=== PATIENT | male | born 1980 | race African-American/Black ===

== ENCOUNTER 2016-06-06 09:55 | Emergency (ER) | payer OTHER ==
[2016-06-06 10:05] VITALS: BP 155/90; PULSE 103; TEMP 102.5; BMI 31.6
[2016-06-06] MEDS ORDERED: IBUPROFEN 600 MG TABLET (FP) PO ONE ×3 (10:14→11:38)
--- NOTE | 2016-06-06 10:57 | PDOC ---
History of Present Illness - General Chief Complaint: Respiratory Stated Complaint: FLU LIKE SYMPTOMS Time Seen by Provider: 06/06/16 10:56 History Source: Patient Exam Limitations: No Limitations - History of Present Illness Initial Comments: 06/06/16 12:03 My chief complaint: Sore throat, chronic cough, generalized body aches and fever 5 days History Of present illness: Patient is a 36-year-old male with a history of hypertension, scoliosis surgery, and hernia repair here today complaining of generalized body aches, fever, productive cough with white to yellowish phlegm 5 days with sore throat. Patient reports that once he starts coughing he feels slightly short of breath. Patient denies any difficulty swallowing. Patient denies nausea vomiting or diarrhea. Patient reports that his children have been sick recently. Patient did not have influenza vaccine. 06/06/16 12:05 06/06/16 12:27 06/06/16 18:39 Timing/Duration: getting worse Severity: moderate Associated Symptoms: reports: cough (productive white to yellowish ), fever/ chills, other (generalized bodyaches) Past History - Past Medical History Allergies/Adverse Reactions: Allergies Allergy/AdvReac Type Severity Reaction Status Date / Time No Known Allergies Allergy Verified 06/06/16 10:04 Home Medications: Ambulatory Orders Promethazine HCl/Codeine [Prometh-Codein 6.25-10 mg/5 ml] 5 ml PO Q6H PRN #60 ml MDD 4 06/06/16 HTN: Yes Other medical history: SCOLIOSIS - Surgical History Abdominal Surgery: Yes (R INGUINAL HERNIA REPAIR) - Psycho/Social/Smoking Cessation Hx Anxiety: No Suicidal Ideation: No Smoking Status: Yes Smoking History: Current some day smoker Have you smoked in the past 12 months: No Number of Cigarettes Smoked Daily: 0 Information on smoking cessation initiated: No Hx Alcohol Use: No Drug/Substance Use Hx: No Substance Use Type: None Review of Systems - Review of Systems Able to Perform ROS?: Yes Constitutional: Yes: Fever HEENTM: Yes: Throat Pain Respiratory: Yes: Shortness of Breath (when coughing ), Productive cough (white to yellowish). No: Cough, Orthopnea, SOB with Exertion, SOB at Rest, Stridor, Wheezing Cardiac (ROS): No: Symptoms Reported ABD/GI: No: Symptoms Reported : No: Symptoms Reported Musculoskeletal: Yes: Other (generalized bodyaches) Integumentary: No: Symptoms Reported Neurological: No: Symptoms reported *Physical Exam - Vital Signs Last Vital Signs Temp Pulse Resp BP Pulse Ox 102.5 F H 103 H 18 155/90 97 06/06/16 10:01 06/06/16 10:01 06/06/16 10:01 06/06/16 10:01 06/06/16 10:01 - Physical Exam General Appearance: Yes: Appropriately Dressed HEENT: positive: TMs Normal, Pharyngeal Erythema, Tonsillar Erythema (with no uvular deviaton ), Nasal Congestion Neck: negative: Lymphadenopathy (R), Lymphadenopathy (L) Respiratory/Chest: positive: Lungs Clear, Normal Breath Sounds. negative: Chest Tender, Respiratory Distress Cardiovascular: positive: Regular Rhythm, Regular Rate, S1, S2 Integumentary: positive: Normal Color Neurologic: positive: Alert, Responsive ED Treatment Course - Medications Given in the ED: ED Medications Discontinued Medications Generic Name Dose Route Start Last Admin Trade Name Freq PRN Reason Stop Dose Admin Ibuprofen 600 mg 06/06/16 10:14 06/06/16 10:15 Motrin - PO 06/06/16 10:15 600 mg NOW ONE Administration Medical Decision Making - Medical Decision Making 06/06/16 12:27 06/06/16 12:28 Patient is a 36-year-old male with a history of hypertension, scoliosis surgery , and hernia repair here today complaining of generalized body aches, fever, productive cough with white to yellowish phlegm 5 days with sore throat. Patient reports that once he starts coughing he feels slightly short of breath. Patient denies any difficulty swallowing. Patient denies nausea vomiting or diarrhea. Patient reports that his children have been sick recently. Patient did not have influenza vaccine. r/o influenza A or B r/o infiltrate PLAN: influenza A & B + for influenza B ibuprofen 600 mg po now than every 6 hrs prn fever/pain duoneb now decadron 10 mg po now xray Chest PA/lateral no acute pathology per Dr. Schultz promethazine codeine 5 ml q 6 hr prn severe cough X 5 days 06/06/16 18:38 *DC/Admit/Observation/Transfer Diagnosis at time of Disposition: Influenza B - Discharge Dispostion Disposition: HOME Condition at time of disposition: Stable - Prescriptions Prescriptions: Promethazine HCl/Codeine [Prometh-Codein 6.25-10 mg/5 ml] 5 ml PO Q6H PRN #60 ml MDD 4 PRN Reason: Cough - Referrals Referrals: Alejandro Olmstead MD [Primary Care Provider] - - Patient Instructions Additional Instructions: Drink A lot a fluids and rest and follow-up with your primary care provider within the next few days Return to emergency room if symptoms worsen any difficulty breathing Patient voiced understanding of discharge instructions and all questions were answered. - Post Discharge Activity Work/School Note: Back to Work
[2016-06-06] MEDS ORDERED: ALBUTEROL SO4 2.5/IPRATROPIUM 0.5 INH SOL 3 ML VIAL.NEB. NEB ONE ×3 (11:30→11:38)
[2016-06-06] MEDS ORDERED: DEXAMETHASONE LIQUID 0.5 MG/5 ML 240 ML BULK BOTTLE PO ONE (11:30)
[2016-06-06] MEDS ORDERED: DEXAMETHASONE SOD PHOSPHATE 10 MG/1 ML VIAL ONE (11:38)
== END 2016-06-06 12:53 | disposition home or self-care (01) ==
LOC: JERFT 09:55
PROC: 3E0F7GC Introduction of Other Therapeutic Substance into Respiratory Tract, Via Natural or Artificial Opening (ICD-10-PCS; principal; 2016-06-06)
DX: J10.1 Influenza due to other identified influenza virus with other respiratory manifestations (principal); F17.210 Nicotine dependence, cigarettes, uncomplicated
CPT/HCPCS: 71020-TC; 87070; 87430; 87804; 99281-25

== ENCOUNTER 2017-07-10 08:54 | Emergency (ER) | payer SELFPAY ==
[2017-07-10 09:04] VITALS: TEMP 98.4; BMI 30.6
--- NOTE | 2017-07-10 09:26 | PDOC ---
History of Present Illness - General Chief Complaint: Lightheaded Stated Complaint: LIGHTHEADED Time Seen by Provider: 07/10/17 09:02 History Source: Patient Exam Limitations: No Limitations - History of Present Illness Initial Comments: 07/10/17 09:24 The patient is a 37M with a PMH of HTN and scoliosis s/p correctional surgery who presents to the ER with complaints of a headache and high blood pressure. The patient states that he has not taken his medications in over 5 months because he lost his job and his new insurance has not kicked in yet. He is unsure of what medications he used to take for his blood pressure. He is also describing a lightheaded sensation and headache. The patient states that his headache has been going on for 4 days, located in b/l frontal areas, and feels like a pressure, not relieved by 2-325 aspirin's. He denies any fever, chills, nausea, vomiting, night sweats, abdominal pain, CP, SOB, numbness, tingling, or weakness. Of note, the patient states that he has a "large travel mug" of coffee every day followed by a 16oz redbull. He denies any drug use but states he drinks 1-2 beers with dinner every night. Past History - Past Medical History Allergies/Adverse Reactions: Allergies Allergy/AdvReac Type Severity Reaction Status Date / Time No Known Allergies Allergy Verified 07/10/17 09:04 Home Medications: Ambulatory Orders Unobtainable [Unobtainable] 07/10/17 COPD: No HTN: Yes - Surgical History Abdominal Surgery: Yes (R INGUINAL HERNIA REPAIR) - Suicide/Smoking/Psychosocial Hx Smoking Status: Yes Smoking History: Current some day smoker Have you smoked in the past 12 months: No Number of Cigarettes Smoked Daily: 4 Information on smoking cessation initiated: No Hx Alcohol Use: No Drug/Substance Use Hx: No Substance Use Type: None Review of Systems - Review of Systems Able to Perform ROS?: Yes Comments:: 07/10/17 09:31 GENERAL/CONSTITUTIONAL: No fever or chills. No weakness. HEAD, EYES, EARS, NOSE AND THROAT: No change in vision. No ear pain or discharge. No sore throat. CARDIOVASCULAR: No chest pain or palpitations. RESPIRATORY: No cough, wheezing, shortness of breath, or hemoptysis. GASTROINTESTINAL: No nausea, vomiting, diarrhea, constipation, or abdominal pain. GENITOURINARY: No dysuria, frequency, hematuria, or change in urination. MUSCULOSKELETAL: No joint or muscle swelling or pain. No neck or back pain. SKIN: No rash or lesions. NEUROLOGIC: Positive for headache and lightheadedness. No numbness, tingling, weakness, loss of consciousness, or change in strength/sensation. ENDOCRINE: No increased thirst. No abnormal weight change. HEMATOLOGIC/LYMPHATIC: No anemia, easy bleeding, or history of blood clots. ALLERGIC/IMMUNOLOGIC: No hives or skin allergy. Is the patient limited Kazakh proficient: No *Physical Exam - Vital Signs Last Vital Signs Temp Pulse Resp BP Pulse Ox 98.4 F 96 H 16 125/92 100 07/10/17 09:00 07/10/17 09:00 07/10/17 09:00 07/10/17 09:00 07/10/17 09:00 - Physical Exam Comments: 07/10/17 09:40 GENERAL: Well developed, well nourished. Awake and alert. No acute distress. HEENT: Normocephalic, atraumatic. Hearing grossly normal. Moist mucous membranes. PERRLA, EOMI. No conjunctival pallor. Sclera are non-icteric. NECK: Supple. Full ROM. CARDIOVASCULAR: Regular rate and rhythm. No murmurs, rubs, or gallops. PULMONARY: No evidence of respiratory distress. Lungs clear to auscultation bilaterally. No wheezing, rales or rhonchi. ABDOMINAL: Soft. Non-tender. Non-distended. No rebound or guarding. GENITOURINARY: No CVA tenderness bilaterally. MUSCULOSKELETAL: Normal range of motion at all joints. No bony deformities or tenderness. EXTREMITIES: No cyanosis. No clubbing. No edema. No calf tenderness. SKIN: Warm and dry. Normal capillary refill. No rashes. No jaundice. NEUROLOGICAL: Alert, awake, appropriate. Cranial nerves 2-12 intact. No deficits to light touch and temperature in face, upper extremities and lower extremities. No motor deficits in the in face, upper extremities and lower extremities. Finger to nose normal bilaterally. Normal speech. Gait is normal without ataxia. PSYCHIATRIC: Cooperative. Good eye contact. Appropriate mood and affect. Heart Score/ECG Review #1 General ECG Interpretation: Sinus Rhythm, Normal Rate, Normal Intervals, No acute ischemic changes Compared to previous ECG there are: Previous ECG unavail 07/10/17 09:42 Vent rate 80 MT 170 QRS 110 QTc 438 No acute ischemic changes. No STD or MESHA. Borderline LVH noted in aVL. ED Treatment Course - LABORATORY CBC & Chemistry Diagram: 07/10/17 09:30 07/10/17 09:30 Medical Decision Making - Medical Decision Making 07/10/17 09:43 The patient is a 37M with a PMH of HTN who has not taken his medications in months and is presenting to the ER with complaints of b/l frontal headache and lightheadedness. EKG NSR without MESHA or STD. Sending CBC, CMP, trop looking for end organ damage 2/2 to HTN. Pending labs and imaging. 07/10/17 11:36 CBC, CMP, troponin, and EKG WNL. CKMB slightly elevated. Head CT negative for acute pathology. Will discuss findings with patient and refer for PCP f/u. *DC/Admit/Observation/Transfer Diagnosis at time of Disposition: Headache Qualifiers: Headache type: unspecified Headache chronicity pattern: acute headache Intractability: not intractable Qualified Code(s): R51 - Headache - Discharge Dispostion Disposition: HOME Condition at time of disposition: Stable Decision to Admit order: No - Referrals Referrals: Agustin Chen MD [Primary Care Provider] - Fernando Knox MD [Staff Physician] - - Patient Instructions Printed Discharge Instructions: DI for High Blood Pressure Additional Instructions: You came in today for a headache with high blood pressure. You had a CT scan of your head which showed no abnormalities. You also had an EKG and labwork which was normal. Please follow up with your primary care doctor to keep track of your headaches and monitor your blood pressure. Please follow up with your primary care physician in 2-3 days. You can follow up with Dr. Chen or the [facility] at the [facility] (with Dr. Knox). Please return to the ER if you have any signs or symptoms of chest pain, shortness of breath, uncontrollable fever, chills, nausea, vomiting, numbness, tingling, or weakness in any part of your body, changes in vision, or slurred speech. Please return to the ER if symptoms persist, worsen, or new symptoms arise. - Post Discharge Activity
[2017-07-10 09:37] LABS: BASO % 0.8 % (0-2.0); EOS % 2.4 % (0-4.5); HEMATOCRIT 41.7 % (35.4-49); HEMOGLOBIN 13.9 GM/dL (11.7-16.9); LYMPH % 28.8 % (8-40); MCH 30.3 pg (25.7-33.7); MCHC 33.4 g/dl (32.0-35.9); MEAN CELL VOLUME 90.9 fl (80-96); MEAN PLT VOLUME 7.9 fl (7.5-11.1); MONO % 8.5 % (3.8-10.2); NEUT % 59.5 % (42.8-82.8); PLATELET COUNT 318 K/MM3 (134-434); RBC 4.59 M/mm3 (4.00-5.60); RDW 12.9 % (11.9-15.9)
[2017-07-10] MEDS ORDERED: METOCLOPRAMIDE HCL INJECTION 10 MG/2 ML VIAL IVPB ONE (09:41)
[2017-07-10] MEDS ORDERED: ACETAMINOPHEN 1000 MG/100 ML VIAL (NON FORMULARY) IVPB ONE (09:41)
[2017-07-10] MEDS ORDERED: SODIUM CHLORIDE 0.9% 1000 ML INFUS.BAG IV ONE (09:41)
[2017-07-10] MEDS ORDERED: ACETAMINOPHEN INJECTION 100 ML IVPB ONE (09:44)
[2017-07-10] MEDS ORDERED: METOCLOPRAMIDE HCL INJECTION 10 MG/2 ML VIAL ONE (09:44)
[2017-07-10 10:10] LABS: ALBUMIN 4.2 g/dl (3.4-5.0); ANION GAP 4 (8-16); BLOOD UREA NITROGEN 9 mg/dL (7-18); CALCIUM 8.8 mg/dL (8.5-10.1); CHLORIDE 104 mmol/L (98-107); CO2 31 mmol/L (21-32); GLUCOSE,RANDOM 91 mg/dL (74-106); SODIUM 139 mmol/L (136-145)
[2017-07-10 10:13] LABS: ALK PHOS 53 U/L (45-117); BILIRUBIN,TOTAL 0.3 mg/dL (0.2-1.0); CREATININE 0.9 mg/dL (0.7-1.3); SGOT/AST 40 U/L (15-37); SGPT/ALT 59 U/L (12-78); TOT PROT 7.6 g/dl (6.4-8.2)
--- NOTE | 2017-07-10 11:51 | PDOC ---
Attending Attestation - Resident Resident Name: AnthonyKike foreman - ED Attending Attestation I have performed the following: I have examined & evaluated the patient, The case was reviewed & discussed with the resident, I agree w/resident's findings & plan, Exceptions are as noted - HPI HPI: 07/10/17 12:15 37-year-old male with past medical history of hypertension presents with elevated blood pressure mild headache. Patient reports that he has not been able take his blood pressure medications because of his insurance. He does not member which medications he takes. Has not taken the last 5 months. 4 days ago, patient noticed a mild bitemporal general tension-like headache without nausea or vomiting. Not worse headache of life. Not thunderclapping. No nausea or vomiting or numbness. Came in because his requested him to do so. Denies any recent illnesses, fevers, chills, cough,. - Physicial Exam PE: 07/10/17 12:17 GENERAL: Awake, alert, and fully oriented, in no acute distress. HEAD: No signs of trauma EYES: PERRLA, EOMI, sclera anicteric, conjunctiva clear ENT: Auricles normal inspection, hearing grossly normal, nares patent NECK: Normal ROM, supple, LUNGS: Breath sounds equal, clear to auscultation bilaterally. No wheezes, and no crackles HEART: Regular rate and rhythm, normal S1 and S2, no murmurs, rubs or gallops ABDOMEN: Soft, nontender, No guarding, no rebound. No masses EXTREMITIES: Normal range of motion, no edema. No clubbing or cyanosis. No cords, erythema, or tenderness NEUROLOGICAL: Cranial nerves II through XII intact. Normal speech, normal gait. 5/5 strength upper and lower extremities. Sensation intact throughout. No dysmetria. SKIN: Warm, Dry, normal turgor, no rashes or lesions noted. - Medical Decision Making 07/10/17 12:18 Vital Signs Temp Pulse Resp BP Pulse Ox 98.4 F 80 16 138/94 100 07/10/17 09:00 07/10/17 09:53 07/10/17 09:00 07/10/17 09:53 07/10/17 09:00 07/10/17 12:[address] demonstrates mild volume loss mainly in the high convexity without evidence of acute intercurrent pathology. CBC, BMP 05/10/18 09:30 07/10/17 09:30 The patient is nontoxic appearing with a normal neurological exam. The patient' s headache may be tension or possibly secondary to elevated blood pressures. CAT scan demonstrates no acute findings. I do not suspect some record hemorrhage or other acute findings. Patient reported feeling better with the medications. He will follow with his primary care physician in regards to his blood pressure medication states that his insurance is setting in very shortly. Heart Score/ECG Review #1 ECG reviewed & interpreted by me at: 09:35 07/10/17 12:07 NSR 80, LVH, TWI III, no std/shay, normal axis, normal intervals, T wave flat avF , QTC 438 msec
[2017-07-10 13:05] VITALS: BP 144/90; PULSE 83
== END 2017-07-10 13:05 | disposition home or self-care (01) ==
LOC: JER 08:54
PROC: 3E033NZ Introduction of Analgesics, Hypnotics, Sedatives into Peripheral Vein, Percutaneous Approach (ICD-10-PCS; principal; 2017-07-10)
PROC: 3E033GC Introduction of Other Therapeutic Substance into Peripheral Vein, Percutaneous Approach (ICD-10-PCS; 2017-07-10)
DX: I10 Essential (primary) hypertension (principal); R51 Headache; F17.210 Nicotine dependence, cigarettes, uncomplicated
CPT/HCPCS: 36415; 70450-TC; 80053; 82550; 82553; 84484; 85025; 99283-25; J0131; J7030

== ENCOUNTER 2020-02-02 17:18 | Emergency (ER) | payer BC ==
[2020-02-02 17:28] VITALS: BP 149/107; PULSE 101; TEMP 98.7; BMI 29.0
[2020-02-02] MEDS ORDERED: KETOROLAC TROMETHAMINE 60 MG/2 ML VIAL ONE (17:54)
[2020-02-02] MEDS ORDERED: KETOROLAC TROMETHAMINE 60 MG/2 ML VIAL IM ONE (17:56)
== END 2020-02-02 18:08 | disposition home or self-care (01) ==
LOC: JERFT 17:18
PROC: 3E0233Z Introduction of Anti-inflammatory into Muscle, Percutaneous Approach (ICD-10-PCS; principal; 2020-02-02)
DX: S39.012A Strain of muscle, fascia and tendon of lower back, initial encounter (principal)
CPT/HCPCS: 99284-25

== ENCOUNTER 2021-08-05 12:28 | Emergency (ER) | payer BC ==
[2021-08-05 12:37] VITALS: TEMP 98.4; BMI 31.6
[2021-08-05 13:50] LABS: BASO % 0.8 % (0-2.0); HEMATOCRIT 40.3 % (35.4-49); HEMOGLOBIN 13.2 GM/dL (11.7-16.9); LYMPH % 31.5 % (8-40); MCH 29.5 pg (25.7-33.7); MCHC 32.7 g/dl (32.0-35.9); MEAN CELL VOLUME 90.4 fl (80-96); MEAN PLT VOLUME 8.3 fl (7.5-11.1); MONO % 7.2 % (3.8-10.2); NEUT % 57.5 % (42.8-82.8); PLATELET COUNT 320 10^3/uL (134-434); RBC 4.46 M/mm3 (4.00-5.60); RDW 13.5 % (11.9-15.9); WHITE BLOOD COUNT 5.9 K/mm3 (4.0-10.0)
[2021-08-05 14:10] LABS: CALCIUM 8.9 mg/dL (8.5-10.1)
[2021-08-05 14:11] LABS: ALBUMIN 4.2 g/dl (3.4-5.0)
[2021-08-05 14:12] LABS: ACTIVATED PTT 42.4 SECONDS (25.2-36.5)
[2021-08-05 14:16] LABS: BILIRUBIN,TOTAL 0.3 mg/dL (0.2-1); TOT PROT 7.7 g/dl (6.4-8.2)
[2021-08-05 14:18] LABS: BLOOD UREA NITROGEN 18.8 mg/dL (7-18); CREATININE 1.1 mg/dL (0.55-1.3)
[2021-08-05 14:37] LABS: PROTHROMBIN TIME (PATIENT) 11.5 SEC (9.7-13.0)
[2021-08-05 16:46] VITALS: BP 152/106; PULSE 79
== END 2021-08-05 18:03 | disposition home or self-care (01) ==
LOC: JER 12:28
DX: R07.9 Chest pain, unspecified (principal)
CPT/HCPCS: 36415; 71046-TC-FY; 80053; 84484; 85025; 85610; 85730; 93005; 93010; 99285-25